=== PATIENT | female | born 1990 | race Caucasian/White ===

== ENCOUNTER 2016-09-29 23:28 | Emergency (ER) | payer MEDICAID ==
[~2016-09-29] VITALS: Ht 177.8 cm; Wt 90.7 kg
[~2016-09-29 23:28] MED LIST: ALPR.25T PO; ALPR1TAB2 PO; BUDE6HFA IH; CLIN300C3 PO; CYCL10TA45 PO; DOXY100C2 PO; FRS325T PO; HYDR1TAB PO; IBP800T PO; NAPR500T PO; NITR-65 PO; NITR100C PO; ONDA-41 PO; ONDA8TAB12 PO; PANT40TA2 PO; PRD20T PO; PREN-16 PO; PREN1TAB14 PO; PREN1TAB39 PO; PRO AIR; SUCR1TAB36 PO; TRAM50TA2 PO; flexeril PO
[2016-09-29] MEDS ORDERED: LACTATED RINGERS 1,000 ML IV ONE (23:43)
[2016-09-29] MEDS ORDERED: HYOSCYAMINE 0.125 MG (LEVSIN) TAB SL ONE (23:45)
[2016-09-29] MEDS ORDERED: ONDANSETRON 4 MG/2 ML (SDV) Z0FRAN IVP ONE (23:45)
[2016-09-29] MEDS ORDERED: PANTOPRAZOLE 40 MG/10 ML (PROTONIX) VIAL IV ONE (23:45)
[2016-09-29 23:52] LABS: BASOPHILS % (AUTO) 0 % (0-10); EOSINOPHILS # (AUTO) 0.4 10^3/uL (0.0-0.3); EOSINOPHILS % (AUTO) 3 % (0-10); LYMPHOCYTES # (AUTO) 3.6 X 10^3 (1.0-4.0); LYMPHOCYTES % (AUTO) 30 % (12-44); MEAN CORPUSCULAR HEMOGLOBIN 29 PG (25-34); MEAN CORPUSCULAR HGB CONC 35 G/DL (32-36); MEAN CORPUSCULAR VOLUME 84 FL (80-99); MEAN PLATELET VOLUME 9.4 FL (7.4-10.4); MONOCYTES # (AUTO) 0.7 X 10^3 (0.0-1.0); MONOCYTES % (AUTO) 6 % (0-12); NEUTROPHILS # (AUTO) 7.2 X 10^3 (1.8-7.8); NEUTROPHILS % (AUTO) 61 % (42-75); PLATELET COUNT 367 10^3/uL (130-400); RED BLOOD COUNT 5.19 10^6/uL (4.35-5.85); RED CELL DISTRIBUTION WIDTH 12.8 % (10.0-14.5)
[2016-09-30 00:11] LABS: ALANINE AMINOTRANSFERASE 13 U/L (0-55); ALBUMIN 4.1 G/DL (3.2-4.5); AMYLASE 32 U/L (25-125); ANION GAP 10 MMOL/L (5-14); ASPARTATE AMINO TRANSFERASE 12 U/L (5-34); BILIRUBIN,TOTAL 0.3 MG/DL (0.1-1.0); BLOOD UREA NITROGEN 10 MG/DL (7-18); BUN/CREATININE RATIO 11; CALCIUM 9.2 MG/DL (8.5-10.1); CARBON DIOXIDE 24 MMOL/L (21-32); CHLORIDE 106 MMOL/L (98-107); CREATININE SERUM 0.89 MG/DL (0.60-1.30); GFR ESTIMATED > 60; GLUCOSE 123 MG/DL (70-105); LIPASE 13 U/L (8-78); POTASSIUM 3.8 MMOL/L (3.6-5.0); SODIUM 140 MMOL/L (135-145); TOTAL PROTEIN 6.9 G/DL (6.4-8.2)
[2016-09-30 00:16] LABS: ALCOHOL < 10 MG/DL (<10)
[2016-09-30] MEDS ORDERED: KETOROLAC 30 MG/ML VIAL ONE (00:23)
[2016-09-30] MEDS ORDERED: METOCLOPRAMIDE INJ 10 MG/2 ML (REGLAN) ONE (00:23)
[2016-09-30] MEDS ORDERED: KETOROLAC 30 MG/ML VIAL IVP ONE (00:30)
[2016-09-30] MEDS ORDERED: METOCLOPRAMIDE INJ 10 MG/2 ML (REGLAN) IVP ONE (00:30)
[2016-09-30] MEDS ORDERED: diphenhydrAMINE 50 MG/ML INJ (BENADRYL) IVP ONE (00:30)
[2016-09-30 00:43] LABS: BILIRUBIN,URINE NEGATIVE (NEGATIVE); KETONES,URINE NEGATIVE (NEGATIVE); LEUKOCYTE ESTERASE ,URINE 3+ (NEGATIVE); NITRITE,URINE NEGATIVE (NEGATIVE); PH,URINE 6 (5-9); PROTEIN,URINE NEGATIVE (NEGATIVE); UROBILINOGEN,URINE NORMAL (NORMAL)
[2016-09-30] MEDS ORDERED: IOHEXOL 350 MG/ML 100 ML (OMNIPAQUE 350) VIAL IV ONE (00:45)
[2016-09-30] MEDS ORDERED: NS 100 ML (IVPB) BAG IV ONE (00:45)
--- NOTE | 2016-09-30 01:19 | ED Abdominal Pain ---
General Chief Complaint: Abdominal/GI Problems Stated Complaint: ABD PAIN Nursing Triage Note: PT TO ED 5 W/ S.O. FOR C/O ABD PAIN. PT REPORTS WHEN ASKED HOW LONG PAIN HAS BEEN GOING ON "I DON'T KNOW". PT ROCKING BACK ET FORTH AT THIS TIME. Sepsis Screen: No Definite Risk Source of Information: Patient History of Present Illness Time Seen By Provider: 23:43 Initial Comments C/O SEVERE UPPER ABDOMINAL PAIN SINCE LAST PM PAIN WAXES AND WANES PAIN GOT MUCH WORSE TONIGHT C/O NAUSEA, VOMITED X 1 NO DIARRHEA--HAD NORMAL BM THIS AM NO FEVER NO URINARY SYMPTOMS STATES SHE ATE TACO [place] 3 HOURS AGO--DORITOS LOCO TACOS AND ALSO REGULAR TACO-- PAIN BEGAN 1 1/2 HOURS AFTER EATING HAD BISCUIT AT 1830 TONIGHT HAS BEEN DRINKING LIQUIDS OK--44 OZ SPRITE, SEVERAL GLASSES OF WATER, AND DRANK A HI-C ON THE WAY HERE PT WAS SEEN HERE 06/27/16 FOR GI PROBLEMS AND WAS GIVEN RX FOR PROTONIX AND CARAFATE PT DID NOT FINISH MEDICATIONS AND DID NOT FOLLOW UP WITH ANYONE PT HAD NOT HAD ANY PROBLEMS UNTIL LAST PM STATES THIS PAIN IS MUCH WORSE THAN THE PROBLEMS SHE WAS HAVING THEN STATES SHE TOOK THOSE MEDICATIONS 15 MINUTES PRIOR TO ARRIVAL BUT THREW THEM UP PCP: DR. Herminia LEIGH Allergies and Home Medications Allergies Coded Allergies: Cefpodoxime Proxetil (Verified Allergy, Mild, 04/24/12) Home Medications Ciprofloxacin HCl 500 Mg Tablet, 500 MG PO BID, #20 Prescribed by: BARBARA VICTOR on 09/30/16211 Dicyclomine HCl 10 Mg Capsule, 10 MG PO Q6H PRN for ABDOMINAL PAIN, #15 Prescribed by: BARBARA VICTOR on 09/30/16 021 Hyoscyamine Sulfate 0.125 Mg Tab.subl, 1-2 TAB SL Q4H, #15 Prescribed by: BARBARA VICTOR on 09/30/16211 Ondansetron 4 Mg Tab.rapdis, 4 MG PO Q4H, #10 Prescribed by: BARBARA VICTOR on 09/30/16211 Pantoprazole Sodium 40 Mg Tablet.dr, 40 MG PO DAILY, #20 Prescribed by: QUENTIN STOCKTON on 06/27/16 2127 Sucralfate 1 Gm Tablet, 1 GM PO ACHS, #40 Prescribed by: QUENTIN STOCKTON on 06/27/16 5096 Review of Systems Constitutional: no symptoms reported Respiratory: No Symptoms Reported Cardiovascular: No Symptoms Reported Gastrointestinal: See HPI, Abdominal Pain, Denies Constipated, Denies Diarrhea , Nausea, Poor Appetite, Vomiting Genitourinary: No Symptoms Reported Musculoskeletal: no symptoms reported Skin: no symptoms reported Psychiatric/Neurological: Anxiety Endocrine: No Symptoms Reported Hematologic/Lymphatic: No Symptoms Reported Past Lmmvqoa-Jwnrxp-Fiaqok Hx Patient Social History Alcohol Use: Occasionally Uses Recreational Drug Use: Yes (THC) Smoking Status: Current Everyday Smoker (1 PPD) Type Used: Cigarettes 2nd Hand Smoke Exposure: Yes Recent Foreign Travel: No Contact w/Someone Who Travel: No Recent Infectious Disease Expo: No Recent Hopitalizations: No Immunizations Up To Date Tetanus Booster (TDap): Less than 5yrs Surgeries HX Surgeries: Yes (RIGHT KNEE SURGERY) Surgeries: Orthopedic Respiratory Hx Respiratory Disorders: Yes Respiratory Disorders: Asthma, Chronic Bronchitis Cardiovascular Hx Cardiac Disorders: No Neurological Hx Neurological Disorders: No Reproductive System Hx Reproductive Disorders: No Genitourinary Hx Genitourinary Disorders: No Gastrointestinal Hx Gastrointestinal Disorders: No Musculoskeletal Hx Musculoskeletal Disorders: No Endocrine Hx Endocrine Disorders: No HEENT HX ENT Disorders: No Cancer Hx Cancer: No Psychosocial Hx Psychiatric Problems: Yes Behavioral Health Disorders: Anxiety Integumentary HX Skin/Integumentary Disorder: No Blood Transfusions Hx Blood Disorders: No Family Medical History Significant Family History: No Pertinent Family Hx Family Medial History: Alzheimer's disease 19 FATHER (PGM) Arthritis 19 FATHER 19 MOTHER Asthma 19 FATHER Completed stroke 19 FATHER (PGF) Coronary thrombosis 19 FATHER (PGF) Deafness or hearing loss 19 MOTHER Diabetes mellitus 19 FATHER (PGF, PGM) 19 MOTHER (MGF, MGM) Drug abuse 19 FATHER (family members) 19 MOTHER (family members) Hypertension 19 FATHER Seizure disorder 19 FATHER Physical Exam Vital Signs VS - Last 72 Hours, by Label 09/29/16 09/30/16 23:33 02:24 Temp 96.7 Pulse 68 47 Resp 24 20 B/P (MAP) 139/108 Pulse Ox 100 98 O2 Delivery Room Air Capillary Refill : Less Than 3 Seconds General Appearance: WD/WN, other (EXTREMELY DRAMATIC, HYPERVENTILATING, WAILING , THRASHING. REEKS OF CIGARETTES) HEENT: PERRL/EOMI, No scleral icterus (R), No scleral icterus (L) Neck: normal inspection Respiratory: normal breath sounds, no respiratory distress, no accessory muscle use Cardiovascular: normal peripheral pulses, regular rate, rhythm, no murmur Gastrointestinal: normal bowel sounds, soft, no organomegaly, no pulsatile mass , No distended, No guarding, No rebound, tenderness (MILD EPIGASTRIC TENDERNESS) , No hernia, No mass Extremities: normal inspection Back: no CVA tenderness Neurologic/Psychiatric: per diem interpreter II-XII nml as tested, no motor/sensory deficits, alert, oriented x 3 Skin: normal color, warm/dry, No rash, tattoos/piercings (MULTIPLE TATTOOS) Progress/Results/Core Measures Results/Orders Lab Results Laboratory Tests Test 09/29/16 00:30 09/29/16 23:45 Range/Units Urine Color YELLOW Urine Clarity SLIGHTLY CLOUDY Urine pH 6 5-9 Urine Specific [place] 1.025 H 1.016-1.022 Urine Protein NEGATIVE NEGATIVE Urine Glucose (UA) NEGATIVE NEGATIVE Urine Ketones NEGATIVE NEGATIVE Urine Nitrite NEGATIVE NEGATIVE Urine Bilirubin NEGATIVE NEGATIVE Urine Urobilinogen NORMAL NORMAL MG/DL Urine Leukocyte Esterase 3+ H NEGATIVE Urine RBC (Auto) 3+ H NEGATIVE Urine RBC 5-10 H /HPF Urine WBC 10-25 H /HPF Urine Squamous Epithelial Cells 5-10 /HPF Urine Crystals NONE /LPF Urine Bacteria MODERATE H /HPF Urine Casts NONE /LPF Urine Mucus NEGATIVE /LPF Urine Culture Indicated YES Urine Opiates Screen NEGATIVE NEGATIVE Urine Oxycodone Screen NEGATIVE NEGATIVE Urine Methadone Screen NEGATIVE NEGATIVE Urine Propoxyphene Screen NEGATIVE NEGATIVE Urine Barbiturates Screen NEGATIVE NEGATIVE Ur Tricyclic Antidepressants Screen NEGATIVE NEGATIVE Urine Phencyclidine Screen NEGATIVE NEGATIVE Urine Amphetamines Screen NEGATIVE NEGATIVE Urine Methamphetamines Screen NEGATIVE NEGATIVE Urine Benzodiazepines Screen POSITIVE H NEGATIVE Urine Cocaine Screen NEGATIVE NEGATIVE Urine Cannabinoids Screen POSITIVE H NEGATIVE White Blood Count 12.0 H 4.3-11.0 10^3/uL Red Blood Count 5.19 4.35-5.85 10^6/uL Hemoglobin 15.2 11.5-16.0 G/DL Hematocrit 43 35-52 % Mean Corpuscular Volume 84 80-99 FL Mean Corpuscular Hemoglobin 29 25-34 PG Mean Corpuscular Hemoglobin Concent 35 32-36 G/DL Red Cell Distribution Width 12.8 10.0-14.5 % Platelet Count 367 130-400 10^3/uL Mean Platelet Volume 9.4 7.4-10.4 FL Neutrophils (%) (Auto) 61 42-75 % Lymphocytes (%) (Auto) 30 12-44 % Monocytes (%) (Auto) 6 0-12 % Eosinophils (%) (Auto) 3 0-10 % Basophils (%) (Auto) 0 0-10 % Neutrophils # (Auto) 7.2 1.8-7.8 X 10^3 Lymphocytes # (Auto) 3.6 1.0-4.0 X 10^3 Monocytes # (Auto) 0.7 0.0-1.0 X 10^3 Eosinophils # (Auto) 0.4 H 0.0-0.3 10^3/uL Basophils # (Auto) 0.0 0.0-0.1 10^3/uL Sodium Level 140 135-145 MMOL/L Potassium Level 3.8 3.6-5.0 MMOL/L Chloride Level 106 98-107 MMOL/L Carbon Dioxide Level 24 21-32 MMOL/L Anion Gap 10 5-14 MMOL/L Blood Urea Nitrogen 10 7-18 MG/DL Creatinine 0.89 0.60-1.30 MG/DL Estimat Glomerular Filtration Rate > 60 BUN/Creatinine Ratio 11 Glucose Level 123 H 70-105 MG/DL Calcium Level 9.2 8.5-10.1 MG/DL Total Bilirubin 0.3 0.1-1.0 MG/DL Aspartate Amino Transf (AST/SGOT) 12 5-34 U/L Alanine Aminotransferase (ALT/SGPT) 13 0-55 U/L Alkaline Phosphatase 63 40-136 U/L Total Protein 6.9 6.4-8.2 G/DL Albumin 4.1 3.2-4.5 G/DL Amylase Level 32 25-125 U/L Lipase 13 8-78 U/L Serum Test, Qualitative NEGATIVE NEGATIVE Serum Alcohol < 10 <10 MG/DL My Orders Orders - BARBARA VICTOR DO Saline Lock/Iv-Start (09/29/16 23:43) Alcohol (09/29/16 23:43) Amylase (09/29/16 23:43) Cbc With Automated Diff (09/29/16 23:43) Comprehensive Metabolic Panel (09/29/16 23:43) Drug Screen Stat (Urine) (09/29/16 23:43) Hcg,Qualitative Serum (09/29/16 23:43) Lipase (09/29/16 23:43) Ua Culture If Indicated (09/29/16 23:43) Ondansetron Injection (Zofran Injectio (09/29/16 23:45) Hyoscyamine Sl Tablet (Levsin Sl Tablet) (09/29/16 23:45) Saline Lock/Iv-Start (09/29/16 23:43) Lactated Ringers (Lr 1000 Ml Iv Solution (09/29/16 23:43) Pantoprazole Injection (Protonix Injecti (09/29/16 23:45) Ketorolac Injection (Toradol Injection) (09/30/16 00:30) Metoclopramide Injection (Reglan Injecti (09/30/16 00:30) Diphenhydramine Injection (Benadryl Inje (09/30/16 00:30) Ct Abdomen/Pelvis W (09/30/16 00:25) Acute Abd Series (09/30/16 00:25) Metoclopramide Injection (Reglan Injecti (09/30/16 00:23) Ketorolac Injection (Toradol Injection) (09/30/16 00:23) Iohexol Injection (Omnipaque 350 Mg/Ml 1 (09/30/16 00:45) Ns (Ivpb) (Sodium Chloride 0.9% Ivpb Bag (09/30/16 00:45) Urine Culture (09/29/16 00:30) Levofloxacin Tablet (Levaquin Tablet) (09/30/16 02:15) Rx-Hyoscyamine Tab (Rx-Levsin Sl) (09/30/16 02:09) Rx-Ondansetron Po (Rx-Zofran Po) (09/30/16 02:09) Medications Given in ED Current Medications Medications Dose Ordered Sig/Sven Route Start Time Stop Time Status Last Admin Dose Admin Diphenhydramine HCl 50 mg ONCE ONCE IVP 09/30/16 00:30 09/30/16 00:32 DC 09/30/16 00:33 50 MG Hyoscyamine Sulfate 0.25 mg ONCE ONCE SL 09/29/16 23:45 09/29/16 23:46 DC 09/29/16 23:56 0.25 MG Iohexol 100 ml ONCE ONCE IV 09/30/16 00:45 09/30/16 01:08 DC 09/30/16 00:54 100 ML Ketorolac Tromethamine 30 mg ONCE ONCE IVP 09/30/16 00:30 09/30/16 00:32 DC 09/30/16 00:30 30 MG Lactated Ringer's 1,000 ml @ 0 mls/hr Q0M ONCE IV 09/29/16 23:43 09/29/16 23:46 DC 09/29/16 23:55 1,000 MLS/HR Levofloxacin 500 mg ONCE ONCE PO 09/30/16 02:15 09/30/16 02:16 DC 09/30/16 02:20 500 MG Metoclopramide HCl 10 mg ONCE ONCE IVP 09/30/16 00:30 09/30/16 00:32 DC 09/30/16 00:29 10 MG Ondansetron HCl 4 mg ONCE ONCE IVP 09/29/16 23:45 09/29/16 23:46 DC 09/29/16 23:56 4 MG Pantoprazole 40 mg ONCE ONCE IV 09/29/16 23:45 09/29/16 23:46 DC 09/29/16 23:56 40 MG Sodium Chloride 80 ml ONCE ONCE IV 09/30/16 00:45 09/30/16 01:08 DC 09/30/16 00:54 80 ML Vital Signs/I&O Vital Sign - Last 12Hours 09/29/16 09/30/16 23:33 02:24 Temp 96.7 Pulse 68 47 Resp 24 20 B/P (MAP) 139/108 Pulse Ox 100 98 O2 Delivery Room Air Blood Pressure Mean: 118 Progress Note : Progress Note SYMPTOMS RESOLVED AT DISMISSAL--PT FEELS MUCH BETTER Diagnostic Imaging Comments ACUTE ABDOMEN XRAYS--NO ACUTE PROCESS, PENDING RADIOLOGIST REVIEW CT ABDOMEN/PELVIS--NON-SPECIFIC MESENTERIC LYMPH NODES, SIMILAR TO PRIOR CT. CANNOT EXCLUDE ENTERITIS/ADENITIS; HEPATOMEGALY. OTHER NON-ACUTE FINDINGS-- PER [facility] VIA FAX @ [phone] Reviewed: Reviewed by Me Departure Impression Impression: Primary Impression: Gastroenteritis Additional Impression: Urinary tract infection Disposition: 01 HOME, SELF-CARE Condition: Improved Departure-Patient Inst. Referrals: HENRRY LEIGH MD Patient Instructions: Urinary Tract Infection, Adult (DC), Viral Gastroenteritis, Adult (DC) Add. Discharge Instructions: CLEAR LIQUIDS--WATER, BROTH, JELLO, GATORADE--SIPS AT A TIME WHEN VOMITING HAS STOPPED, ADD BRATS DIET TO CLEAR LIQUIDS--BANANAS, RICE, APPLESAUCE, TOAST, SALTINES FOLLOW UP WITH YOUR DR IN 1-2 DAYS IF NO BETTER All discharge instructions reviewed with patient and/or family. Voiced understanding. Scripts Lactobacillus Acidophilus (Acidophilus) 1 Each Capsule 2 EACH PO QID, #80 CAP Prov: BARBARA VICTOR DO 09/30/16 Ondansetron (Zofran Odt) 4 Mg Tab.rapdis 4 MG PO Q4H for Nausea/Vomiting, #10 TAB Prov: BARBARA VICTOR DO 09/30/16 Hyoscyamine Sulfate (Levsin-Sl) 0.125 Mg Tab.subl 1-2 TAB SL Q4H for Abdominal Pain, #15 TAB Prov: BARBARA VICTOR DO 09/30/16 Ciprofloxacin HCl (Cipro) 500 Mg Tablet 500 MG PO BID, #20 TAB Prov: BARBARA VICTOR DO 09/30/16 Dicyclomine HCl (Bentyl) 10 Mg Capsule 10 MG PO Q6H Y for ABDOMINAL PAIN, #15 CAP Prov: BARBARA VICTOR DO 09/30/16 BARBARA VICTOR DO Sep 30, 2016 01:19
[2016-09-30] MEDS ORDERED: RX-ONDANSETRON 4 MG ODT (ZOFRAN) PPK #4 PO STA (02:09)
[2016-09-30] MEDS ORDERED: RX-HYOSCYAMINE 0.125 MG SL (LEVSIN) PPK#6 SL STA (02:09)
[2016-09-30] MEDS ORDERED: DICY10CA59 PO (02:12)
[2016-09-30] MEDS ORDERED: CIPR-225 PO (02:12)
[2016-09-30] MEDS ORDERED: ONDA4TAB8 PO (02:12)
[2016-09-30] MEDS ORDERED: HYOS0.1283 SL (02:12)
[2016-09-30] MEDS ORDERED: LEVOFLOXACIN 500 MG TAB (LEVAQUIN) PO ONE (02:15)
[2016-09-30 02:24] VITALS: BP 135/89
[2016-09-30] MEDS ORDERED: LACT1CAP8 PO (04:54)
--- NOTE | 2016-09-30 07:08 | Diagnostic Imaging Report ---
PROCEDURE: CT abdomen and pelvis with contrast. TECHNIQUE: Multiple contiguous axial images were obtained through the abdomen and pelvis after administration of intravenous contrast. INDICATION: Pain. FINDINGS: The liver, gallbladder, bile ducts, spleen, adrenals, pancreas all unremarkable. There is no hydronephrosis. There is no bowel obstruction. There is an IUD device which appeared unremarkable. There are bilateral ovarian follicular cysts. No suspicious adnexal lesion. No pelvic ascites. No evidence for appendicitis. The appendix normal. There is no diverticulitis. There are a few subcentimeter right lower quadrant pericecal mesenteric lymph nodes. In the appropriate scenario mild mesenteric adenitis could not be excluded. No other potential acute finding. IMPRESSION: Borderline right lower quadrant mesenteric adenitis. No obstructive phenomena, fluid collection, or focal inflammatory changes evident. I agree with the preliminary. Dictated by: Dictated on workstation # [id number]
--- NOTE | 2016-09-30 07:28 | Diagnostic Imaging Report ---
INDICATION: Pain FINDINGS: The lungs are clear. The heart and vessels normal. There is no effusion or pneumothorax. There is an IUD device in the midline pelvis. The bowel gas pattern normal. No pathological fecal loading. IMPRESSION: No acute appearing abnormality Dictated by: Dictated on workstation # [id number]
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
== END 2016-09-30 02:24 | disposition home or self-care (01) ==
LOC: EDUNIT# 23:28 → ER 23:29
DX: K52.9 Noninfective gastroenteritis and colitis, unspecified (principal); N30.90 Cystitis, unspecified without hematuria; F17.210 Nicotine dependence, cigarettes, uncomplicated
CPT/HCPCS: 36415; 74022; 74177; 80053; 80306; 80320; 81000; 82150; 83690; 84703; 85025; 87088; 96361; 96374; 96375

== ENCOUNTER 2020-09-07 13:38 | Emergency (ER) | payer SELFPAY ==
[~2020-09-07] VITALS: Ht 177.8 cm; Wt 107.9 kg
[~2020-09-07 13:38] MED LIST changes: +CIPR-225 PO; +DICY10CA59 PO; +HYOS0.1283 SL; +LACT1CAP8 PO; +NAPR-1071 PO; -NAPR500T PO; +ONDA4TAB8 PO; -ONDA8TAB12 PO; +ONDA8TAB15 PO
[2020-09-07] MEDS ORDERED: AZITHROMYCIN 250 MG TAB (ZITHROMAX) PO ONE (14:15)
[2020-09-07] MEDS ORDERED: LIDOCAINE 1% INJ 20 ML 20 ML VIAL INJ ONE (14:15)
[2020-09-07] MEDS ORDERED: cefTRIAXone 500 MG/1.43 ML vial (IM ONLY) IM ONE (14:15)
--- NOTE | 2020-09-07 14:15 | ED GU-Female ---
General Chief Complaint: Female Reproductive Stated Complaint: PERSISTANT VAGINAL PAIN Source: patient Exam Limitations: no limitations History of Present Illness Date Seen by Provider: Sep 07, 2020 Time Seen by Provider: 13:50 Initial Comments Patient presents ER by private conveyance from home with her significant other in chief complaint she has had dyspareunia for the past 5 years but tonight after intercourse she had severe pain 10 out of 10. Has subsided down to a 6 out of 10. She has not take anything for the pain. She is also noticed in the past couple days she has had increased milky white frothy discharge which is unusual for her. She had a IUD placed [address] Casas and has never followed up for it or for her dyspareunia. She is not having any fever. She had little nausea with her pain but none now. No history of abdominal surgeries. Allergies and Home Medications Allergies Coded Allergies: Cefpodoxime Proxetil (Verified Allergy, Mild, 04/24/12) Home Medications Ciprofloxacin HCl 500 Mg Tablet, 500 MG PO BID Prescribed by: BARBARA VICTOR on 09/30/16211 Dicyclomine HCl 10 Mg Capsule, 10 MG PO Q6H PRN for ABDOMINAL PAIN Prescribed by: BARBARA VICTOR on 09/30/16211 Hyoscyamine Sulfate 0.125 Mg Tab.subl, 1-2 TAB SL Q4H Prescribed by: BARBARA VICTOR on 09/30/16211 Lactobacillus Acidophilus 1 Each Capsule, 2 EACH PO QID Prescribed by: BARBARA VICTOR on 09/30/16453 Ondansetron 4 Mg Tab.rapdis, 4 MG PO Q4H Prescribed by: BARBARA VICTOR on 09/30/16211 Pantoprazole Sodium 40 Mg Tablet.dr, 40 MG PO DAILY Prescribed by: QUENTIN STOCKTON on 06/27/162246 Sucralfate 1 Gm Tablet, 1 GM PO ACHS Prescribed by: QUENTIN STOCKTON on 06/27/162246 Patient Home Medication List Home Medication List Reviewed: Yes Review of Systems Review of Systems Constitutional: No chills, No diaphoresis EENTM: No ear discharge, No ear pain Respiratory: No cough, No short of breath Cardiovascular: No Hx of Intervention, No palpitations Gastrointestinal: abdominal pain (Suprapubic); No nausea, No vomiting Genitourinary: see HPI; denies burning; discharge; denies dysuria : No Musculoskeletal: No back pain, No joint pain All Other Systemes Reviewed Negative Unless Noted: Yes Past Pmzstuo-Qiytkc-Htdniy Hx Patient Social History Alcohol Use: Denies Use Smoking Status: Current Everyday Smoker Type Used: Cigarettes 2nd Hand Smoke Exposure: Yes Recent Hopitalizations: No Immunizations Up To Date Tetanus Booster (TDap): Less than 5yrs Past Medical History Surgeries: Yes (RIGHT KNEE SURGERY) Orthopedic Respiratory: Yes Asthma, Chronic Bronchitis Cardiac: No Neurological: No Reproductive Disorders: No Gastrointestinal: No Musculoskeletal: No Endocrine: No Cancer: No Psychosocial: Yes Anxiety Integumentary: No Blood Disorders: No Family Medical History Alzheimer's disease 19 FATHER (PGM) Arthritis 19 FATHER 19 MOTHER Asthma 19 FATHER Completed stroke 19 FATHER (PGF) Coronary thrombosis 19 FATHER (PGF) Deafness or hearing loss 19 MOTHER Diabetes mellitus 19 FATHER (PGF, PGM) 19 MOTHER (MGF, MGM) Drug abuse 19 FATHER (family members) 19 MOTHER (family members) Hypertension 19 FATHER Seizure disorder 19 FATHER No Pertinent Family Hx Physical Exam Vital Signs Vital Signs - First Documented 09/07/20 13:57 Pulse 90 Resp 19 B/P (MAP) 134/83 (100) Pulse Ox 99 O2 Delivery Room Air Capillary Refill : Height, Weight, BMI Height: 5'10.00" Weight: 200lbs. oz. 90.484426lc; 32.28 BMI Method:Stated General Appearance: WD/WN, no apparent distress HEENT: PERRL/EOMI, pharynx normal Neck: full range of motion, normal inspection Cardiovascular: normal peripheral pulses, regular rate, rhythm Respiratory: no respiratory distress, no accessory muscle use Gastrointestinal: normal bowel sounds, soft, no organomegaly, tenderness (Suprapubic), other (Negative for mesenteric signs) Genital/Rectal: normal genital exam, other (External moderately thick mucoid brown discharge from the cervical os without pooling, blood or laceration. No palpable foreign object at the cervix. Mild tenderness but no chandelier sign. No ovarian mass palpable.) Extremities: non-tender, normal inspection, normal capillary refill Neurologic/Psychiatric: alert, normal mood/affect, oriented x 3 Skin: normal color, warm/dry Progress/Results/Core Measures Suspected Sepsis SIRS Temperature: Pulse: Respiratory Rate: Laboratory Tests 09/07/20 14:20: White Blood Count 9.6 Blood Pressure / Mean: Laboratory Tests 09/07/20 14:20: Creatinine 0.87, Platelet Count 317, Total Bilirubin 0.3 Results/Orders Lab Results Laboratory Tests Test 09/07/20 14:20 09/07/20 14:55 09/07/20 15:00 Range/Units White Blood Count 9.6 4.3-11.0 10^3/uL Red Blood Count 5.18 H 3.80-5.11 10^6/uL Hemoglobin 15.1 11.5-16.0 g/dL Hematocrit 46 35-52 % Mean Corpuscular Volume 89 80-99 fL Mean Corpuscular Hemoglobin 29 25-34 pg Mean Corpuscular Hemoglobin Concent 33 32-36 g/dL Red Cell Distribution Width 11.8 10.0-14.5 % Platelet Count 317 130-400 10^3/uL Mean Platelet Volume 9.6 9.0-12.2 fL Immature Granulocyte % (Auto) 0 % Neutrophils (%) (Auto) 66 42-75 % Lymphocytes (%) (Auto) 25 12-44 % Monocytes (%) (Auto) 6 0-12 % Eosinophils (%) (Auto) 3 0-10 % Basophils (%) (Auto) 1 0-10 % Neutrophils # (Auto) 6.3 1.8-7.8 10^3/uL Lymphocytes # (Auto) 2.4 1.0-4.0 10^3/uL Monocytes # (Auto) 0.6 0.0-1.0 10^3/uL Eosinophils # (Auto) 0.2 0.0-0.3 10^3/uL Basophils # (Auto) 0.1 0.0-0.1 10^3/uL Immature Granulocyte # (Auto) 0.0 0.0-0.1 10^3/uL Sodium Level 138 135-145 MMOL/L Potassium Level 4.1 3.6-5.0 MMOL/L Chloride Level 107 98-107 MMOL/L Carbon Dioxide Level 22 21-32 MMOL/L Anion Gap 9 5-14 MMOL/L Blood Urea Nitrogen 7 7-18 MG/DL Creatinine 0.87 0.60-1.30 MG/DL Estimat Glomerular Filtration Rate > 60 BUN/Creatinine Ratio 8 Glucose Level 100 70-105 MG/DL Calcium Level 9.1 8.5-10.1 MG/DL Corrected Calcium 8.9 8.5-10.1 MG/DL Total Bilirubin 0.3 0.1-1.0 MG/DL Aspartate Amino Transf (AST/SGOT) 11 5-34 U/L Alanine Aminotransferase (ALT/SGPT) 16 0-55 U/L Alkaline Phosphatase 62 40-136 U/L Total Protein 7.3 6.4-8.2 GM/DL Albumin 4.3 3.2-4.5 GM/DL Urine Color YELLOW Urine Clarity CLEAR Urine pH 8.0 5-9 Urine Specific [place]on 1.015 L 1.016-1.022 Urine Protein NEGATIVE NEGATIVE Urine Glucose (UA) NEGATIVE NEGATIVE Urine Ketones NEGATIVE NEGATIVE Urine Nitrite NEGATIVE NEGATIVE Urine Bilirubin NEGATIVE NEGATIVE Urine Urobilinogen 0.2 < = 1.0 MG/DL Urine Leukocyte Esterase NEGATIVE NEGATIVE Urine RBC (Auto) NEGATIVE NEGATIVE Urine RBC NONE /HPF Urine WBC NONE /HPF Urine Squamous Epithelial Cells 2-5 /HPF Urine Crystals NONE /LPF Urine Bacteria NEGATIVE /HPF Urine Casts NONE /LPF Urine Mucus NEGATIVE /LPF Urine Culture Indicated NO Micro Results Microbiology 09/07/20 Wet Prep - Final, Complete My Orders Orders - LADAN ZAMARRIPA Ua Culture If Indicated (09/07/20 13:48) Urine Bedside (09/07/20 13:48) Wet Prep (09/07/20 14:05) Syphilis Antibody Screen (09/07/20 14:05) Cbc With Automated Diff (09/07/20 14:05) Comprehensive Metabolic Panel (09/07/20 14:05) Ceftriaxone For Im Use (Rocephin For Im (09/07/20 14:15) Lidocaine 1% Inj 20 Ml (Xylocaine 1% Inj (09/07/20 14:15) Azithromycin Tablet (Zithromax Tablet) (09/07/20 14:15) Chlamydia Trachomatis Swab (09/07/20 14:23) Neisseria Gonorrhea Swab (09/07/20 14:23) Medications Given in ED Current Medications Medications Dose Ordered Sig/Sven Route Start Time Stop Time Status Last Admin Dose Admin Azithromycin 1,000 mg ONCE ONCE PO 09/07/20 14:15 09/07/20 14:16 DC 09/07/20 14:46 1,000 MG Ceftriaxone Sodium 500 mg ONCE ONCE IM 09/07/20 14:15 09/07/20 14:16 DC 09/07/20 14:47 500 MG Lidocaine HCl 1 ml ONCE ONCE INJ 09/07/20 14:15 09/07/20 14:16 DC 09/07/20 14:47 1 ML Vital Signs/I&O 09/07/20 13:57 Pulse 90 Resp 19 B/P (MAP) 134/83 (100) Pulse Ox 99 O2 Delivery Room Air Capillary Refill : Progress Note #1: Time: 14:08 Progress Note Suspect an STI. Plan to do pelvic exam with testing. We will go ahead and treat her with appropriate antibiotics. Look much less likely she could have a displaced IUD and an ultrasound would be indicated however that is not available in this ER today. It may be reasonable since this is been going on for 5 years to set this up tomorrow morning. Patient states she does not know what her allergy to cephalosporins are because she was a little kid and her mom told her not to take it. Plan to go ahead and give her Rocephin since there is not a really good alternative and high rates of resistance and gonorrhea. Will monitor her for about an hour or so to rule out any anaphylactic symptoms. We discussed the risks, benefits and alternatives to antibiotic treatment with Rocephin and the patient agrees and consents to pursue treatment today. Progress Note #2: Time: 15:04 Progress Note The patient is so far tolerating the Rocephin shot. She is not in any kind of discomfort so we will set her up tomorrow morning for an ultrasound pelvis. She wants to follow-up with Dr. Casas to discuss having the IUD, copper type removed and possibly some other form of permanent sterilization. Departure Impression Primary Impression: Dyspareunia Additional Impressions: IUD complication Qualified Codes: T83.9XXA - Unspecified complication of genitourinary prosthetic device, implant and graft, initial encounter Bacterial vaginitis Disposition: 01 HOME, SELF-CARE Condition: Stable Departure-Patient Inst. Decision time for Depature: 15:47 Referrals: MADELAINE CASAS MD NO,LOCAL PHYSICIAN (PCP) Primary Care Physician Patient Instructions: Dyspareunia (Painful Sex), Intrauterine Devices (IUD) Add. Discharge Instructions: Plan to get an ultrasound of your pelvis done tomorrow morning by calling first thing in the morning the number on top of the outpatient order form. Follow-up in the next week or [address] Casas for results of your send out blood tests and ultrasound as well as discuss your IUD and other forms of contraception. Bacterial vaginitis is not a sexually transmitted disease but it is a bacterial overgrowth that can be treated with Flagyl and antibiotic twice a day for the next week. This should improve your symptoms significantly. All discharge instructions reviewed with patient and/or family. Voiced understanding. Scripts Metronidazole (Flagyl) 500 Mg Tablet 500 MG PO BID for 7 Days, #14 TAB 0 Refills Prov: LADAN ZAMARRIPA 09/07/20 Work/School Note: Work Release Form Date Seen in the Emergency Department: Sep 07, 2020 Return to Work: Sep 08, 2020 Restrictions: No Restrictions LADAN ZAMARRIPA Sep 07, 2020 14:15
[2020-09-07 14:22] LABS: BASOPHILS # (AUTO) 0.1 10^3/uL (0.0-0.1); BASOPHILS % (AUTO) 1 % (0-10); EOSINOPHILS # (AUTO) 0.2 10^3/uL (0.0-0.3); EOSINOPHILS % (AUTO) 3 % (0-10); HEMATOCRIT 46 % (35-52); HEMOGLOBIN 15.1 g/dL (11.5-16.0); LYMPHOCYTES # (AUTO) 2.4 10^3/uL (1.0-4.0); LYMPHOCYTES % (AUTO) 25 % (12-44); MEAN CORPUSCULAR HEMOGLOBIN 29 pg (25-34); MEAN CORPUSCULAR HGB CONC 33 g/dL (32-36); MEAN CORPUSCULAR VOLUME 89 fL (80-99); MEAN PLATELET VOLUME 9.6 fL (9.0-12.2); MONOCYTES # (AUTO) 0.6 10^3/uL (0.0-1.0); MONOCYTES % (AUTO) 6 % (0-12); NEUTROPHILS # (AUTO) 6.3 10^3/uL (1.8-7.8); NEUTROPHILS % (AUTO) 66 % (42-75); PLATELET COUNT 317 10^3/uL (130-400); WHITE BLOOD COUNT 9.6 10^3/uL (4.3-11.0)
[2020-09-07 14:33] LABS: ALBUMIN 4.3 GM/DL (3.2-4.5); CHLORIDE 107 MMOL/L (98-107); POTASSIUM 4.1 MMOL/L (3.6-5.0); SODIUM 138 MMOL/L (135-145)
[2020-09-07 14:34] LABS: CALCIUM 9.1 MG/DL (8.5-10.1)
[2020-09-07 14:35] LABS: GLUCOSE 100 MG/DL (70-105); TOTAL PROTEIN 7.3 GM/DL (6.4-8.2)
[2020-09-07 14:36] LABS: CARBON DIOXIDE 22 MMOL/L (21-32)
[2020-09-07 14:37] LABS: BILIRUBIN,TOTAL 0.3 MG/DL (0.1-1.0)
[2020-09-07 14:39] LABS: ALKALINE PHOSPHATASE 62 U/L (40-136); CREATININE SERUM 0.87 MG/DL (0.60-1.30); GFR ESTIMATED > 60
[2020-09-07 14:40] LABS: BUN/CREATININE RATIO 8
[2020-09-07 14:42] LABS: ALANINE AMINOTRANSFERASE 16 U/L (0-55)
[2020-09-07 15:08] LABS: BILIRUBIN,URINE NEGATIVE (NEGATIVE); CLARITY,URINE CLEAR; COLOR,URINE YELLOW; GLUCOSE, URINE (UA) NEGATIVE (NEGATIVE); KETONES,URINE NEGATIVE (NEGATIVE); LEUKOCYTE ESTERASE ,URINE NEGATIVE (NEGATIVE); NITRITE,URINE NEGATIVE (NEGATIVE); PROTEIN,URINE NEGATIVE (NEGATIVE)
[2020-09-07 15:16] LABS: BACTERIA,URINE NEGATIVE /HPF
[2020-09-07] MEDS ORDERED: METR500T PO (15:47)
[2020-09-07 16:06] VITALS: BP 128/76
== END 2020-09-07 16:06 | disposition home or self-care (01) ==
LOC: EDUNIT# 13:38 → ER 13:39
DX: N94.10 Unspecified dyspareunia (principal); T83.39XA Other mechanical complication of intrauterine contraceptive device, initial encounter; N76.0 Acute vaginitis; F17.210 Nicotine dependence, cigarettes, uncomplicated; Z88.1 Allergy status to other antibiotic agents; Z82.61 Family history of arthritis; Z83.3 Family history of diabetes mellitus; Z82.49 Family history of ischemic heart disease and other diseases of the circulatory system
CPT/HCPCS: 36415; 80053; 81000; 85025; 86780; 87210; 87491; 87591; 99284